=== PATIENT | male | born 1970 | race Caucasian/White ===

== ENCOUNTER 2021-07-29 08:43 | Emergency (ER) | payer MEDICAID ==
[~2021-07-29] VITALS: Ht 162.6 cm; Wt 64.0 kg
[2021-07-29 08:52] VITALS: BP 115/82
[2021-07-29] MEDS ORDERED: ACETAMINOPHEN 325MG TABLET PO ONE (09:15)
[2021-07-29] MEDS ORDERED: TETANUS, DIPHTHERIA, PERTUSSIS VAC/PF 0.5ML (>10YR OLD) IM ONE (09:45)
[2021-07-29] MEDS ORDERED: LIDOCAINE HCL 1% 20ML VIAL (Pyxis) INJ INFIL ONE (09:45)
== END 2021-07-29 11:02 | disposition home or self-care (01) ==
LOC: ER 08:43
DX: S61.022A Laceration with foreign body of left thumb without damage to nail, initial encounter (principal); W22.8XXA Striking against or struck by other objects, initial encounter; Y93.89 Activity, other specified; Y92.018 Other place in single-family (private) house as the place of occurrence of the external cause; Y99.8 Other external cause status
CPT/HCPCS: 12001; 73130; 99283; J3490; 90715

== ENCOUNTER 2021-09-07 16:18 | Emergency (ER) | payer SELFPAY ==
[~2021-09-07] VITALS: Ht 162.6 cm; Wt 64.0 kg
[2021-09-07] MEDS ORDERED: LIDOCAINE 5% PATCH TOP NR (22:00)
[2021-09-07] MEDS ORDERED: CYCLOBENZAPRINE 10MG TABLET PO NR (22:00)
[2021-09-07] MEDS: KETOROLAC 30MG/ML VIAL IM NR ×2 (23:17→23:19)
[2021-09-07 23:19] VITALS: BP 140/77
[2021-09-07] MEDS ORDERED: DICLOFENAC SODIUM 75MG DR (EC) TABLET PO ONE (23:45)
[2021-09-08] MEDS ORDERED: DICL50TA9 MT (01:03)
[2021-09-08] MEDS ORDERED: CYCL10TA21 MT (01:03)
== END 2021-09-08 04:34 | disposition home or self-care (01) ==
LOC: ER 16:18
DX: M54.50 Low back pain, unspecified (principal); M51.36 Other intervertebral disc degeneration, lumbar region
CPT/HCPCS: 72131; 73502; 96372; 99284; J1885